=== PATIENT | male | born 1985 | race Caucasian/White ===

== ENCOUNTER 2019-10-16 17:26 | Inpatient (IN) | payer MEDICAID ==
[~2019-10-16] VITALS: Ht 167.6 cm; Wt 59.9 kg
[~2019-10-16 17:26] MED LIST: NOCURR
[2019-10-16] MEDS ORDERED: MIRT-89 PO (17:43)
[2019-10-16] MEDS ORDERED: GABA-1201 PO (17:43)
[2019-10-16] MEDS ORDERED: QUEtiapine FUMARATE 100 MG TABLET PO PRN (18:00)
[2019-10-16] MEDS ORDERED: LORazepam 2 MG/ML VIAL ONE (18:24)
[2019-10-16] MEDS ORDERED: ChlorproMAZINE HCL 25 MG/ML 2 ML AMP ONE (18:24)
[2019-10-16] MEDS ORDERED: DiphenhydrAMINE HCL 50 MG/ML VIAL ONE (18:24)
[2019-10-16] MEDS ORDERED: DiphenhydrAMINE HCL 50 MG/ML VIAL IM ONE (18:30)
[2019-10-16] MEDS ORDERED: ChlorproMAZINE HCL 25 MG/ML 2 ML AMP IM ONE (18:30)
[2019-10-16] MEDS ORDERED: LORazepam 2 MG/ML VIAL IM ONE (18:30)
[2019-10-16 19:25] VITALS: BP 137/92
[2019-10-17 06:29] VITALS: BP 145/61
[2019-10-17] MEDS ORDERED: NICOTINE 14 MG/24 HOUR PATCH TD PRN (08:15)
[2019-10-17] MEDS ORDERED: MAGNESIUM HYDROXIDE SUSPENSION 30 ML UDCUP PO PRN (08:15)
[2019-10-17] MEDS ORDERED: MAG HYDROX/AL HYDROX/SIMETH ES 30 ML SUSPENSION UDCUP PO PRN (08:15)
[2019-10-17] MEDS ORDERED: CloNIDine HCL 0.1 MG TABLET PO PRN (08:15)
[2019-10-17] MEDS ORDERED: LOPERAMIDE HCL 2 MG CAPSULE PO PRN (08:15)
[2019-10-17] MEDS ORDERED: DOCUSATE SODIUM 100 MG CAPSULE PO PRN (08:15)
[2019-10-17] MEDS ORDERED: ONDANSETRON HCL 4 MG TABLET PO PRN (08:15)
[2019-10-17] MEDS ORDERED: ALBUTEROL SULFATE HFA 90 MCG/PUFF 8 GM INHALER IH PRN (08:15)
[2019-10-17] MEDS ORDERED: PETROLATUM,WHITE 28 GM JELLY TP PRN (08:15)
[2019-10-17] MEDS ORDERED: IBUPROFEN 400 MG TABLET PO PRN (08:15)
[2019-10-17] MEDS ORDERED: GuaiFENesin/D-METHORPHAN [SUGAR-FREE] 200-20MG/10 ML SYRUP UDCUP PO PRN (08:15)
[2019-10-17] MEDS ORDERED: ACETAMINOPHEN 325 MG TABLET PO PRN (08:15)
[2019-10-17 08:26] VITALS: BP 115/71
[2019-10-17 17:38] VITALS: BP 110/62
[2019-10-17] MEDS: QUEtiapine FUMARATE 200 MG TABLET PO SCH (20:50)
[2019-10-17] MEDS: MIRTAZAPINE 15 MG TABLET PO SCH (20:50)
[2019-10-17] MEDS: LORazepam 2 MG TABLET PO PRN (20:51)
[2019-10-18 05:17] VITALS: BP 116/70
[2019-10-18 08:00] VITALS: BP 125/71
[2019-10-18 08:21] LABS: BASOPHILS % (AUTO) 0.8 % (0.0-2.0); EOSINOPHILS % (AUTO) 3.9 % (1.0-6.0); HEMOGLOBIN 14.4 g/dL (13.5-17.5); LYMPHOCYTES # (AUTO) 1.8 K/uL (1.0-4.8); LYMPHOCYTES % (AUTO) 24.3 % (22.0-44.0); MEAN CORPUSCULAR HEMOGLOBIN 31.5 pg (26.0-34.0); MEAN CORPUSCULAR HGB CONC 34.3 G/dL (31.0-37.0); MEAN CORPUSCULAR VOLUME 92 fL (80-100); MONOCYTES # (AUTO) 0.5 K/uL (0.1-1.0); NEUTROPHILS # (AUTO) 4.6 K/uL (1.8-7.7); PLATELET COUNT (AUTO) 202 K/uL (150-450); RED BLOOD CELL COUNT(AUTO) 4.57 MIL/uL (4.50-5.90); RED CELL DISTRIBUTION WIDTH 12.4 % (11.5-14.5)
[2019-10-18 08:50] LABS: ALBUMIN 3.4 g/dL (3.4-5.0); ALKALINE PHOSPHATASE 56 U/L (46-116); ANION GAP 8 mmol/L (8-16); ASPARTATE AMINOTRANSFERASE 41 U/L (15-37); BILIRUBIN,TOTAL 0.1 mg/dL (0.1-1.0); CALCIUM, TOTAL 8.7 mg/dL (8.8-10.5); CARBON DIOXIDE 27 mmol/L (22-29); CHLORIDE 107 mmol/L (98-107); CHOL/HDL RATIO 2.4 (4.2-7.3); CHOLESTEROL 149 mg/dL (131-200); CREATININE 0.88 mg/dL (0.60-1.30); GLOMERULAR FILTR. RATE CALC > 60 mL/min (>60); GLUCOSE,RANDOM 88 mg/dL (70-110); HDL CHOLESTEROL 61 mg/dL (40-60); LDL CHOL (CALC.) 79 mg/dL (0-130); POTASSIUM 4.2 mmol/L (3.5-5.1); SODIUM SERUM 142 mmol/L (136-145); TOTAL PROTEIN, SERUM 6.3 g/dL (6.4-8.2); TRIGLYCERIDES 44 mg/dL (15-150); UREA NITROGEN, BLOOD 15 mg/dL (7-18)
[2019-10-18 09:20] LABS: HEMOGLOBIN A1C 5.2 % (3.8-5.6)
[2019-10-18 09:22] LABS: ALANINE AMINOTRANSFERASE 40 U/L (12-78); FREE T4 (FREE THYROXINE) 0.78 ng/dL (0.76-1.46); THYROID STIMULATING HORMONE 0.63 uIU/mL (0.36-3.74)
[2019-10-18 09:44] LABS: APPEARANCE,URINE CLEAR (CLEAR); BILIRUBIN,URINE NEGATIVE (NEGATIVE); GLUCOSE, URINE (UA) NEGATIVE (NEGATIVE); KETONES,URINE NEGATIVE (NEGATIVE); LEUKOCYTE ESTERASE ,URINE NEGATIVE (NEGATIVE); NITRATE,URINE NEGATIVE (NEGATIVE); OCCULT BLOOD,URINE NEGATIVE (NEGATIVE); PROTEIN,URINE NEGATIVE (NEGATIVE); UROBILINOGEN,URINE 0.2 mg/dL (<=1.0)
[2019-10-18 09:51] LABS: AMPHET/METH SCREEN,URINE POSITIVE (NEGATIVE); BARBITURATE SCREEN, URINE NEGATIVE (NEGATIVE); BENZODIAZEPINES SCREEN,URINE NEGATIVE (NEGATIVE); CANNABINOID SCREEN,URINE NEGATIVE (NEGATIVE); COCAINE SCREEN,URINE NEGATIVE (NEGATIVE); METHADONE SCREEN, URINE NEGATIVE (NEGATIVE); OPIATE SCREEN,URINE NEGATIVE (NEGATIVE); PHENCYCLIDINE SCREEN,URINE NEGATIVE (NEGATIVE)
[2019-10-18] MEDS: LORazepam 2 MG TABLET PO PRN ×2 (11:49→18:38)
[2019-10-18 14:23] VITALS: BP 94/66
[2019-10-18 16:06] VITALS: BP 105/60
[2019-10-18] MEDS: QUEtiapine FUMARATE 200 MG TABLET PO SCH (20:23)
[2019-10-18] MEDS: ZOLPIDEM TARTRATE 10 MG TABLET PO PRN (20:23)
[2019-10-18] MEDS: MIRTAZAPINE 15 MG TABLET PO SCH (20:23)
[2019-10-19 02:39] VITALS: BP 112/72
[2019-10-19 08:15] VITALS: BP 116/71
[2019-10-19] MEDS: GABAPENTIN 400 MG CAPSULE PO SCH ×2 (14:16→16:03)
[2019-10-19] MEDS: LORazepam 2 MG TABLET PO PRN (16:03)
[2019-10-19 16:05] VITALS: BP 133/76
[2019-10-19] MEDS: QUEtiapine FUMARATE 200 MG TABLET PO SCH (20:16)
[2019-10-19] MEDS: MIRTAZAPINE 15 MG TABLET PO SCH (20:16)
[2019-10-20 00:29] VITALS: BP 118/72
[2019-10-20 08:20] VITALS: BP 110/62
[2019-10-20] MEDS: GABAPENTIN 400 MG CAPSULE PO SCH ×3 (08:31→16:11)
[2019-10-20] MEDS: LORazepam 2 MG TABLET PO PRN (14:14)
[2019-10-20 16:55] VITALS: BP 105/80
[2019-10-20] MEDS ORDERED: HALOPERIDOL LACTATE 5 MG/ML VIAL ONE (17:25)
[2019-10-20] MEDS ORDERED: DiphenhydrAMINE HCL 50 MG/ML VIAL IM ONE (17:30)
[2019-10-20] MEDS ORDERED: HALOPERIDOL LACTATE 5 MG/ML VIAL IM ONE (17:30)
[2019-10-20] MEDS ORDERED: LORazepam 2 MG/ML VIAL IM ONE (17:30)
[2019-10-20] MEDS ORDERED: ChlorproMAZINE HCL 25 MG/ML 2 ML AMP ONE (17:31)
[2019-10-20] MEDS ORDERED: ChlorproMAZINE HCL 25 MG/ML 2 ML AMP IM ONE (17:45)
[2019-10-20] MEDS: MIRTAZAPINE 15 MG TABLET PO SCH (21:00)
[2019-10-20] MEDS: QUEtiapine FUMARATE 200 MG TABLET PO SCH (21:00)
[2019-10-21] MEDS: LORazepam 2 MG TABLET PO PRN ×3 (00:26→17:27)
[2019-10-21] MEDS: ZOLPIDEM TARTRATE 10 MG TABLET PO PRN (00:26)
[2019-10-21 01:04] VITALS: BP 116/74
[2019-10-21] MEDS: GABAPENTIN 400 MG CAPSULE PO SCH ×3 (08:13→17:14)
[2019-10-21 08:34] VITALS: BP 122/75
[2019-10-21 16:05] VITALS: BP 114/67
[2019-10-21] MEDS: MIRTAZAPINE 15 MG TABLET PO SCH (20:04)
[2019-10-21] MEDS: QUEtiapine FUMARATE 200 MG TABLET PO SCH (20:04)
[2019-10-22 01:12] VITALS: BP 116/63
[2019-10-22 08:15] VITALS: BP 133/76
[2019-10-22] MEDS: LORazepam 2 MG TABLET PO PRN (08:42)
[2019-10-22] MEDS: GABAPENTIN 400 MG CAPSULE PO SCH ×2 (08:42→12:34)
[2019-10-22] MEDS ORDERED: MIRT-89 PO (10:48)
[2019-10-22] MEDS ORDERED: QUET200T29 PO (10:48)
[2019-10-22] MEDS ORDERED: GABA-1201 PO (10:49)
== END 2019-10-22 14:50 | disposition home or self-care (01) | DRG 885 ==
LOC: B3A 17:56
DX: F25.1 Schizoaffective disorder, depressive type (principal); R45.851 Suicidal ideations; F10.10 Alcohol abuse, uncomplicated; F41.9 Anxiety disorder, unspecified; R03.0 Elevated blood-pressure reading, without diagnosis of hypertension; F15.10 Other stimulant abuse, uncomplicated; Z79.899 Other long term (current) drug therapy; Z91.5 Personal history of self-harm; Z88.8 Allergy status to other drugs, medicaments and biological substances; Z88.5 Allergy status to narcotic agent; Z79.891 Long term (current) use of opiate analgesic
CPT/HCPCS: 80307; 83036; 84439; 84443; 87081; J1200; J1630; J2060; J3230

== ENCOUNTER 2020-01-06 01:00 | Inpatient (IN) | payer MEDICAID ==
[~2020-01-06] VITALS: Ht 167.6 cm; Wt 65.3 kg
[~2020-01-06 01:00] MED LIST changes: +GABA-1201 PO; +MIRT-89 PO; -NOCURR; +QUET200T29 PO
[2020-01-07] MEDS ORDERED: ZOLPIDEM TARTRATE 10 MG TABLET PO PRN (02:30)
[2020-01-07] MEDS ORDERED: LORazepam 2 MG TABLET PO PRN (02:30)
[2020-01-07 03:14] VITALS: BP 100/69
[2020-01-07 06:40] VITALS: BP 100/69
[2020-01-07] MEDS ORDERED: ONDANSETRON HCL 4 MG TABLET PO PRN (07:45)
[2020-01-07] MEDS ORDERED: CloNIDine HCL 0.1 MG TABLET PO PRN (07:45)
[2020-01-07] MEDS ORDERED: GuaiFENesin/D-METHORPHAN [SUGAR-FREE] 200-20MG/10 ML SYRUP UDCUP PO PRN (07:45)
[2020-01-07] MEDS ORDERED: MAG HYDROX/AL HYDROX/SIMETH ES 30 ML SUSPENSION UDCUP PO PRN (07:45)
[2020-01-07] MEDS ORDERED: ALBUTEROL SULFATE HFA 90 MCG/PUFF 8 GM INHALER IH PRN (07:45)
[2020-01-07] MEDS ORDERED: ACETAMINOPHEN 325 MG TABLET PO PRN (07:45)
[2020-01-07] MEDS ORDERED: LOPERAMIDE HCL 2 MG CAPSULE PO PRN (07:45)
[2020-01-07] MEDS ORDERED: MAGNESIUM HYDROXIDE SUSPENSION 30 ML UDCUP PO PRN (07:45)
[2020-01-07] MEDS ORDERED: PETROLATUM,WHITE 28 GM JELLY TP PRN (07:45)
[2020-01-07] MEDS ORDERED: IBUPROFEN 400 MG TABLET PO PRN (07:45)
[2020-01-07] MEDS ORDERED: NICOTINE 14 MG/24 HOUR PATCH TD PRN (07:45)
[2020-01-07] MEDS ORDERED: DOCUSATE SODIUM 100 MG CAPSULE PO PRN (07:45)
[2020-01-07 07:52] LABS: BASOPHILS % (AUTO) 0.9 % (0.0-2.0); EOSINOPHILS % (AUTO) 4.2 % (1.0-6.0); HEMATOCRIT 45.4 % (41-53); HEMOGLOBIN 15.6 g/dL (13.5-17.5); LYMPHOCYTES # (AUTO) 2.2 K/uL (1.0-4.8); LYMPHOCYTES % (AUTO) 25.1 % (22.0-44.0); MEAN CORPUSCULAR HEMOGLOBIN 31.9 pg (26.0-34.0); MEAN CORPUSCULAR HGB CONC 34.3 G/dL (31.0-37.0); MEAN CORPUSCULAR VOLUME 93 fL (80-100); MONOCYTES # (AUTO) 0.6 K/uL (0.1-1.0); MONOCYTES % (AUTO) 6.9 % (2.0-9.0); NEUTROPHILS # (AUTO) 5.5 K/uL (1.8-7.7); NEUTROPHILS % (AUTO) 62.9 % (40.0-70.0); PLATELET COUNT (AUTO) 238 K/uL (150-450); RED BLOOD CELL COUNT(AUTO) 4.87 MIL/uL (4.50-5.90); RED CELL DISTRIBUTION WIDTH 12.7 % (11.5-14.5)
[2020-01-07 08:07] LABS: HEMOGLOBIN A1C 5.1 % (3.8-5.6)
[2020-01-07 08:19] LABS: ALANINE AMINOTRANSFERASE 58 U/L (12-78); ALBUMIN 3.9 g/dL (3.4-5.0); ALKALINE PHOSPHATASE 55 U/L (46-116); ANION GAP 5 mmol/L (8-16); ASPARTATE AMINOTRANSFERASE 20 U/L (15-37); BILIRUBIN,TOTAL 0.2 mg/dL (0.1-1.0); CALCIUM, TOTAL 9.1 mg/dL (8.8-10.5); CARBON DIOXIDE 32 mmol/L (22-29); CHLORIDE 102 mmol/L (98-107); CREATININE 1.05 mg/dL (0.60-1.30); FREE T4 (FREE THYROXINE) 0.73 ng/dL (0.76-1.46); GLOMERULAR FILTR. RATE CALC > 60 mL/min (>60); GLUCOSE,RANDOM 111 mg/dL (70-110); POTASSIUM 4.3 mmol/L (3.5-5.1); SODIUM SERUM 139 mmol/L (136-145); THYROID STIMULATING HORMONE 3.56 uIU/mL (0.36-3.74); TOTAL PROTEIN, SERUM 6.6 g/dL (6.4-8.2); UREA NITROGEN, BLOOD 23 mg/dL (7-18)
[2020-01-07 08:28] VITALS: BP 111/78
== END 2020-01-07 14:45 | disposition home or self-care (01) | DRG 751 ==
LOC: B3A 01-07 02:25
PROVIDERS: ADMIT Psychiatry & Neurology Psychiatry; ATTEND Psychiatry & Neurology Psychiatry
DX: F32.3 Major depressive disorder, single episode, severe with psychotic features (principal); E78.5 Hyperlipidemia, unspecified; R45.851 Suicidal ideations; F19.10 Other psychoactive substance abuse, uncomplicated; F17.210 Nicotine dependence, cigarettes, uncomplicated; R73.9 Hyperglycemia, unspecified; Z59.0 Homelessness; Z79.899 Other long term (current) drug therapy; Z88.8 Allergy status to other drugs, medicaments and biological substances
CPT/HCPCS: 83036; 84439; 84443

== ENCOUNTER 2020-01-22 15:14 | Inpatient (IN) | payer OTHER, MEDICAID ==
[~2020-01-22] VITALS: Ht 167.6 cm; Wt 66.4 kg
[2020-01-22] MEDS ORDERED: GABA-1201 PO (17:16)
[2020-01-22] MEDS ORDERED: MIRT-89 PO (17:16)
[2020-01-22] MEDS ORDERED: QUEtiapine FUMARATE 100 MG TABLET PO PRN (18:00)
[2020-01-22] MEDS ORDERED: ZOLPIDEM TARTRATE 10 MG TABLET PO PRN (18:00)
[2020-01-22 18:16] VITALS: BP 134/87
[2020-01-22] MEDS ORDERED: NICOTINE 14 MG/24 HOUR PATCH TD PRN (19:15)
[2020-01-22] MEDS: INFLUENZA VIRUS VACCINE QVS 2020-21 (6MO+)/PF 60 MCG/0.5 ML SYRINGE IM ONE (21:00)
[2020-01-22] MEDS: LORazepam 2 MG TABLET PO PRN (21:05)
[2020-01-23 02:40] VITALS: BP 129/84
[2020-01-23 08:00] VITALS: BP 96/60
[2020-01-23 08:55] LABS: BASOPHILS % (AUTO) 0.9 % (0.0-2.0); EOSINOPHILS % (AUTO) 6.5 % (1.0-6.0); HEMATOCRIT 42.4 % (41-53); HEMOGLOBIN 14.1 g/dL (13.5-17.5); LYMPHOCYTES # (AUTO) 1.9 K/uL (1.0-4.8); LYMPHOCYTES % (AUTO) 26.3 % (22.0-44.0); MEAN CORPUSCULAR HEMOGLOBIN 30.8 pg (26.0-34.0); MEAN CORPUSCULAR HGB CONC 33.2 G/dL (31.0-37.0); MEAN CORPUSCULAR VOLUME 93 fL (80-100); MONOCYTES # (AUTO) 0.6 K/uL (0.1-1.0); MONOCYTES % (AUTO) 8.9 % (2.0-9.0); NEUTROPHILS # (AUTO) 4.1 K/uL (1.8-7.7); NEUTROPHILS % (AUTO) 57.4 % (40.0-70.0); PLATELET COUNT (AUTO) 253 K/uL (150-450); RED BLOOD CELL COUNT(AUTO) 4.57 MIL/uL (4.50-5.90); RED CELL DISTRIBUTION WIDTH 12.5 % (11.5-14.5)
[2020-01-23 09:01] LABS: ALANINE AMINOTRANSFERASE 68 U/L (12-78); ALBUMIN 3.6 g/dL (3.4-5.0); ALKALINE PHOSPHATASE 56 U/L (46-116); ANION GAP 2 mmol/L (8-16); ASPARTATE AMINOTRANSFERASE 23 U/L (15-37); BILIRUBIN,TOTAL 0.2 mg/dL (0.1-1.0); CALCIUM, TOTAL 9.5 mg/dL (8.8-10.5); CARBON DIOXIDE 34 mmol/L (22-29); CHLORIDE 100 mmol/L (98-107); CHOLESTEROL 206 mg/dL (131-200); CREATININE 0.86 mg/dL (0.60-1.30); FREE T4 (FREE THYROXINE) 0.75 ng/dL (0.76-1.46); GLOMERULAR FILTR. RATE CALC > 60 mL/min (>60); GLUCOSE,RANDOM 128 mg/dL (70-110); HDL CHOLESTEROL 52 mg/dL (40-60); LDL CHOL (CALC.) 112 mg/dL (0-130); POTASSIUM 4.1 mmol/L (3.5-5.1); SODIUM SERUM 136 mmol/L (136-145); THYROID STIMULATING HORMONE 3.43 uIU/mL (0.36-3.74); TOTAL PROTEIN, SERUM 6.3 g/dL (6.4-8.2); TRIGLYCERIDES 209 mg/dL (15-150); UREA NITROGEN, BLOOD 22 mg/dL (7-18)
[2020-01-23] MEDS ORDERED: ONDANSETRON HCL 4 MG TABLET PO PRN (09:30)
[2020-01-23] MEDS: BACITRACIN 28 GM OINTMENT TP SCH ×2 (09:30→16:39)
[2020-01-23] MEDS ORDERED: DOCUSATE SODIUM 100 MG CAPSULE PO PRN (09:30)
[2020-01-23] MEDS ORDERED: ALBUTEROL SULFATE HFA 90 MCG/PUFF 8 GM INHALER IH PRN (09:30)
[2020-01-23] MEDS ORDERED: NICOTINE 14 MG/24 HOUR PATCH TD PRN (09:30)
[2020-01-23] MEDS ORDERED: CloNIDine HCL 0.1 MG TABLET PO PRN (09:30)
[2020-01-23] MEDS ORDERED: MAGNESIUM HYDROXIDE SUSPENSION 30 ML UDCUP PO PRN (09:30)
[2020-01-23] MEDS ORDERED: LOPERAMIDE HCL 2 MG CAPSULE PO PRN (09:30)
[2020-01-23] MEDS ORDERED: MAG HYDROX/AL HYDROX/SIMETH ES 30 ML SUSPENSION UDCUP PO PRN (09:30)
[2020-01-23] MEDS ORDERED: PETROLATUM,WHITE 28 GM JELLY TP PRN (09:30)
[2020-01-23] MEDS ORDERED: GuaiFENesin/D-METHORPHAN [SUGAR-FREE] 200-20MG/10 ML SYRUP UDCUP PO PRN (09:30)
[2020-01-23] MEDS: GABAPENTIN 400 MG CAPSULE PO SCH ×2 (12:48→16:40)
[2020-01-23 13:56] VITALS: BP 118/70
[2020-01-23] MEDS: IBUPROFEN 400 MG TABLET PO PRN (13:56)
[2020-01-23 14:43] LABS: COVID AG,FIA SOURCE NASOPHARYNGEAL
[2020-01-23 16:08] VITALS: BP 114/71
[2020-01-23] MEDS: INFLUENZA VIRUS VACCINE QVS 2020-21 (6MO+)/PF 60 MCG/0.5 ML SYRINGE IM ONE (16:40)
[2020-01-23] MEDS: MIRTAZAPINE 15 MG TABLET PO SCH (20:13)
[2020-01-23] MEDS: ACETAMINOPHEN 325 MG TABLET PO PRN (20:14)
[2020-01-24 04:14] VITALS: BP 121/79
[2020-01-24] MEDS: ACETAMINOPHEN 325 MG TABLET PO PRN ×2 (06:49→16:03)
[2020-01-24 08:20] VITALS: BP 130/84
[2020-01-24] MEDS: BACITRACIN 28 GM OINTMENT TP SCH ×2 (08:30→16:04)
[2020-01-24] MEDS: GABAPENTIN 400 MG CAPSULE PO SCH ×3 (08:31→16:03)
[2020-01-24] MEDS: TraMADol HCL 50 MG TABLET PO PRN ×2 (09:53→20:31)
[2020-01-24] MEDS: LORazepam 2 MG TABLET PO PRN (16:03)
[2020-01-24] MEDS: OLANZapine 5 MG TABLET PO SCH (16:03)
[2020-01-24 16:26] VITALS: BP 128/78
[2020-01-24] MEDS: MIRTAZAPINE 15 MG TABLET PO SCH (20:31)
[2020-01-24] MEDS: MUPIROCIN CALCIUM 2% 22 GM OINTMENT NASAL SCH (20:31)
[2020-01-24] MEDS: IBUPROFEN 400 MG TABLET PO PRN (23:35)
[2020-01-24 23:36] VITALS: BP 150/78
[2020-01-25] MEDS: BACITRACIN 28 GM OINTMENT TP SCH (08:16)
[2020-01-25] MEDS: GABAPENTIN 400 MG CAPSULE PO SCH ×2 (08:16→12:18)
[2020-01-25] MEDS: MUPIROCIN CALCIUM 2% 22 GM OINTMENT NASAL SCH (08:17)
[2020-01-25 08:29] VITALS: BP 117/69
[2020-01-25] MEDS: OLANZapine 5 MG TABLET PO SCH ×2 (09:00→12:20)
[2020-01-25] MEDS: ACETAMINOPHEN 325 MG TABLET PO PRN (11:35)
[2020-01-25] MEDS: IBUPROFEN 400 MG TABLET PO PRN (13:00)
[2020-01-25] MEDS ORDERED: OLAN5TAB2 PO (14:22)
== END 2020-01-25 15:15 | disposition home or self-care (01) | DRG 885 ==
LOC: B3A 18:36
PROVIDERS: ADMIT Psychiatry & Neurology Psychiatry; ATTEND Psychiatry & Neurology Psychiatry
DX: F25.9 Schizoaffective disorder, unspecified (principal); R45.851 Suicidal ideations; Z20.828 Contact with and (suspected) exposure to other viral communicable diseases; E78.5 Hyperlipidemia, unspecified; F10.10 Alcohol abuse, uncomplicated; R73.9 Hyperglycemia, unspecified; F19.10 Other psychoactive substance abuse, uncomplicated; Z28.21 Immunization not carried out because of patient refusal; Z59.0 Homelessness
CPT/HCPCS: 83036; 84439; 84443; 87081; 87147; 87426; 90686